=== PATIENT | male | born 1965 | race Caucasian/White ===

== ENCOUNTER 2017-07-02 01:14 | Emergency (ER) | payer OTHER ==
[~2017-07-02] VITALS: Ht 182.9 cm; Wt 105.3 kg
[2017-07-02 01:17] VITALS: Ht 182.9 cm; Wt 105.3 kg
[2017-07-02] MEDS ORDERED: METOCLOPRAMIDE HCL INJ 5 MG/ML 2 ML VIAL IV STA (01:26)
[2017-07-02] MEDS ORDERED: DIAZEPAM INJ 5 MG/ML 2 ML CARP IV STA ×2 (01:26→02:35)
[2017-07-02] MEDS ORDERED: GLUCAGON IV STA (01:26)
[2017-07-02] MEDS ORDERED: SODIUM CHLORIDE 0.9% 1000ML 1,000 ML IV STA (01:26)
[2017-07-02] MEDS ORDERED: NITROGLYCERIN OINT 2% 1GM PACKET EXT STA (01:26)
[2017-07-02] MEDS ORDERED: GLUCAGON FOR INJ 1 MG VIAL IV STA (01:38)
[2017-07-02] MEDS ORDERED: NITROGLYCERIN OINT 2% 1GM PACKET ONE (01:41)
[2017-07-02] MEDS ORDERED: GLUCAGON FOR INJ 1 MG VIAL ONE (01:42)
--- NOTE | 2017-07-02 01:45 | EMERGENCY ROOM VISIT NOTE ---
History Report prepared by Maykel: Jamil García Under the Supervision of: Dr. Sergey Langford M.D. First contact with patient: 01:23 Chief Complaint: VOMITING Stated Complaint: VOMITING,HARD TO BREATHE Nursing Triage Summary: reports fishing all day, had dinner and a few drinks suddenly felt reflux, spasming, difficulty breathing. "it's like my esophagus is spasming, foaming white bubbly stuff coming up". Not improving. Pt does not recall choking on anythin. some relief after "yacking up' History of Present Illness The patient is a 51 year old male who presents to the Emergency Room with complaints of intermittent vomiting starting earlier tonight. The patient sates that he was eating steak, mushrooms, and onions, and he felt like the food " went down the wrong pipe". He states that this has happened to him before, though never this bad. He states that he is now spitting up bubbly foam, and he has done this four times. He additionally states that he is having some chest tightness and shortness of breath. He states that he has never had an endoscopy before. Source of History: patient Onset: earlier tonight Position: other (global) Quality: other (vomiting) Timing: intermittent Associated Symptoms: + SOB Note: Associated symptoms: Chest tightness Review of Systems See HPI for pertinent positives & negatives. A total of 10 systems reviewed and were otherwise negative. Past Medical & Surgical Medical Problems: (1) Food impaction of esophagus Social History Smoking Status: Light Tobacco Smoker Marital Status: Housing Status: lives with family Occupation Status: employed Current/Historical Medications No Active Prescriptions or Reported Meds Allergies Coded Allergies: No Known Allergies (Unverified , 07/02/17) Physical Exam Vital Signs Date Time Temp Pulse Resp B/P (MAP) Pulse Ox O2 Delivery O2 Flow Rate FiO2 07/02/17 07:50 36.6 73 20 130/78 (95) 96 Room Air 07/02/17 07:40 36.6 80 18 124/78 (93) 95 Room Air 07/02/17 07:33 35.9 83 22 120/79 95 Room Air 07/02/17 06:36 87 18 123/75 95 Room Air 07/02/17 04:13 87 16 120/72 94 Room Air 07/02/17 01:17 36.3 100 18 159/99 100 Room Air Physical Exam GENERAL: Patient is a healthy-appearing well-nourished Male, appears uncomfortable, actively spitting saliva HEAD: Normocephalic atraumatic EYES: Ocular movements intact pupils equal and react to light OROPHARYNX mucous membranes are moist no exudates present no erythema or edema present NECK: Supple no nuchal rigidity CHEST: Good equal expansion LUNGS: Clear and equal to auscultation CARDIAC: Normal S1 and S2 ABDOMEN: Soft nontender no guarding BACK: No CVA tenderness EXTREMITIES: No pain upon palpation normal muscle strength in all groups no clubbing cyanosis or edema NEURO: Patient is following commands is answering questions appropriately. Alert and oriented x3 Cranial Nerves 2-12 grossly intact Medical Decision & Procedures ER Provider Diagnostic Interpretation: 1 view chest was interpreted by me shows no evidence of pneumonia congestion pneumothorax or free air. Medications Administered Medications (Trade) Dose Ordered Sig/Dorota Route Start Time Stop Time Status Last Admin Dose Admin Sodium Chloride 1,000 ml @ 999 mls/hr Q1H1M STAT IV 07/02/17 01:26 07/02/17 02:26 DC 07/02/17 01:48 999 MLS/HR Metoclopramide HCl (Reglan Inj) 10 mg NOW STAT IV 07/02/17 01:26 07/02/17 01:28 DC 07/02/17 01:46 10 MG Diazepam (Valium Inj) 5 mg NOW STAT IV 07/02/17 01:26 07/02/17 01:28 DC 07/02/17 01:47 5 MG Nitroglycerin (Nitroglycerin 2% Oint) 1 inch NOW STAT EXT 07/02/17 01:26 07/02/17 01:28 DC 07/02/17 01:47 1 INCH Glucagon (Glucagon Inj) 1 mg NOW STAT IV 07/02/17 01:38 07/02/17 01:39 DC 07/02/17 01:38 1 MG Miscellaneous Medication (Gi Cocktail) 24 ml NOW STAT PO 07/02/17 02:18 07/02/17 02:19 DC 07/02/17 02:18 24 ML Al Hydroxide/Mg Hydroxide (Maalox Susp) 30 ml STK-MED ONCE .ROUTE 07/02/17 02:24 07/02/17 02:25 DC 8/13/17 02:25 30 ML Lidocaine HCl (Viscous Lidocaine 2% Soln) 20 ml STK-MED ONCE .ROUTE 07/02/17 02:24 07/02/17 02:25 DC 07/02/17 02:25 20 ML Diazepam (Valium Inj) 5 mg NOW STAT IV 07/02/17 02:35 07/02/17 02:36 DC 07/02/17 02:41 5 MG Promethazine HCl 25 mg/Sodium Chloride 51 ml @ 204 mls/hr NOW STAT IV 07/02/17 02:35 07/02/17 02:49 DC 07/02/17 02:46 204 MLS/HR ED Course 0123: Past medical records reviewed. The patient was evaluated in room A12. A complete history and physical examination was performed. 0126: Nitroglycerine 2% Oint 1 inch EXT, Valium Inj 5mg IV, Reglan Inj 10mg IV, Sodium Chloride 1000 ml @ 999 mls/hr IV 0138: Glucagon 1mg IV 0156: I reevaluated the patient, and he was feeling better 0218: GI Cocktail 24ml PO 0224: Viscous Lidocaine 2% Soln 20ml PO, Maalox Susp 30ml PO 0233: I discussed the patient's case with Dr. Arreguin, Gastroenterology, and she states that she will evaluate the patient at 0600. 0235: Promethazine HCl 25mg/ Sodium Chloride 51 ml @ 204 mls/hr IV, Valium Inj 5mg IV Medical Decision This is a 51-year-old male presents emergency department he is actively vomiting mushrooms as well as a is from his stay as well as his own saliva ever since eating several hours prior. Patient relates that he has had a history of achalasia however has never had never had an endoscopy performed. An IV was established, patient given normal saline bolus, Valium, glucagon, Reglan, Nitropaste. Repeat exam revealed improvement the patient's symptoms and I was going to trial patient with water however after trying a GI cocktail the patient 's symptoms returned again. At this point I contacted gastroenterology who will be in to scope the patient. He was given a further dose of Valium to help him relax. Patient taken to endoscopy suite in the morning. Medication Reconcilliation Current Medication List: was personally reviewed by me Blood Pressure Screening Patient's blood pressure: Elevated blood pressure Blood pressure disposition: Referred to PCP Consults Time Called: 023 Consulting Physician: Dr. Arreguin, Gastroenterology Returned Call: [phone] I discussed the patient's case with Dr. Arreguin, Gastroenterology, and she states that she will evaluate the patient at 0600. Impression Primary Impression: Food impaction of esophagus Scribe Attestation The scribe's documentation has been prepared under my direction and personally reviewed by me in its entirety. I confirm that the note above accurately reflects all work, treatment, procedures, and medical decision making performed by me. Departure Information Dispostion Still a Patient Prescriptions No Active Prescriptions or Reported Meds Referrals No Doctor, Assigned (PCP) Patient Instructions My [facility] Problem Qualifiers Primary Impression: Food impaction of esophagus Encounter type: initial encounter Qualified Codes: T18.128A - Food in esophagus causing other injury, initial encounter
[2017-07-02] MEDS ORDERED: GI COCKTAIL PO STA (02:18)
[2017-07-02] MEDS ORDERED: ALUMINUM/MAGNESIUM SUSP 30 ML UDC ONE (02:24)
[2017-07-02] MEDS ORDERED: LIDOCAINE HCL 2% VISC SOLN 20 ML UDC ONE (02:24)
[2017-07-02] MEDS ORDERED: PROMETHAZINE HCL INJ 25 MG in SODIUM CHLORIDE 0.9% 50ML 50 ML IV STA (02:35)
[2017-07-02 06:36] VITALS: O2SAT 95
[2017-07-02] MEDS ORDERED: MIDAZOLAM HCL 1 MG/ML 2ML VIAL ONE (06:56)
[2017-07-02] MEDS ORDERED: FENTANYL CITRATE INJ 50 MCG/1 ML 2 ML VIAL ONE (06:56)
[2017-07-02] MEDS ORDERED: PROPOFOL IV EMULSION 10 MG/ML 20 ML VIAL IV ONE (06:56)
[2017-07-02] MEDS ORDERED: LIDOCAINE 2% 20 MG/ML 5ML SYR ONE (06:56)
[2017-07-02] MEDS ORDERED: SUCCINYLCHOLINE CHLORIDE 20 MG/ML 10 ML VIAL IV ONE (06:56)
--- NOTE | 2017-07-02 07:03 | Endo History and Physical ---
History & Physical Date of Service: Jul 02, 2017. Chief Complaint: food bolus Referring Physician: ER History of Present Illness Swallowd food last evening. Unable to swallow since that time Past Medical History HTN Social History Smoking Status: Light Tobacco Smoker Allergies Coded Allergies: No Known Allergies (Unverified , 07/02/17) Current Medications Reported Home Medications Medications Dose Route/Sig Max Daily Dose Days Date Category No Active Prescriptions or Reported Medications Rx Vital Signs Weight (Kilograms): 105.300 Height (Feet): 6 Height (Inches): 0 Date Time Temp Pulse Resp B/P (MAP) Pulse Ox O2 Delivery O2 Flow Rate FiO2 07/02/17 06:36 87 18 123/75 95 Room Air 07/02/17 04:13 87 16 120/72 94 Room Air 07/02/17 01:17 36.3 100 18 159/99 100 Room Air Physical Exam General Appearance: WD/WN Assessment and Plan EGD for food bolus today
--- NOTE | 2017-07-02 07:22 | GI REPORT ---
Procedure Date: 07/02/2017 6:41 AM Procedure: Upper GI endoscopy Indications: Dysphagia, - suspected esophageal foreign body Medicines: Propofol per Anesthesia, Monitored Anesthesia Care Complications: No immediate complications. Estimated blood loss: None. Estimated Blood Loss: Estimated blood loss: none. Procedure: Pre-Anesthesia Assessment: - Prior to the procedure, a History and Physical was performed, and patient medications, allergies and sensitivities were reviewed. The patient's tolerance of previous anesthesia was reviewed. - The risks and benefits of the procedure and the sedation options and risks were discussed with the patient. All questions were answered and informed consent was obtained. - Patient identification and proposed procedure were verified prior to the procedure by the physician and the nurse. The procedure was verified in the pre-procedure area in the procedure room. - Mental Status Examination: alert and oriented. Airway Examination: normal oropharyngeal airway and neck mobility. Respiratory Examination: clear to auscultation. CV Examination: normal. Abdominal Examination: bowel sounds present, abdomen soft and non-tender, no masses or organomegaly noted. - ASA Grade Assessment: II - A patient with mild systemic disease. After obtaining informed consent, the endoscope was passed under direct vision. Throughout the procedure, the patient's blood pressure, pulse, and oxygen saturations were monitored continuously. The scope was introduced through the mouth, and advanced to the second part of duodenum. The upper GI endoscopy was accomplished without difficulty. The patient tolerated the procedure well. Findings: Severe esophagitis with no bleeding was found in the lower third of the esophagus. The stomach was normal. The examined duodenum was normal. Impression: - Severe erosive esophagitis. Scope advanced with ease. No food in the esophagus. Dilation not performed secondary to significant inflammation. - Normal stomach. - Normal examined duodenum. - No specimens collected. Recommendation: - Follow an antireflux regimen. - Use Prilosec (omeprazole) 20 mg PO BID. - Use sucralfate suspension 1 gram PO QID for 1 week. - Repeat the upper endoscopy in 2 weeks to check healing. - Discharge patient to home. Nicolette Arreguin D.O. Nicolette Arreguin DO 07/02/2017 7:22:23 AM This report has been signed electronically. Note Initiated On: 07/02/2017 6:41 AM I attest to the content of the Intraoperative Record and orders documented therein, exceptions below
[2017-07-02 07:33] VITALS: BP 120/79; PULSE 83; TEMP 35.9; O2SAT 95
--- NOTE | 2017-07-02 07:35 | Discharge Instructions ---
Endoscopy Patient Instructions Date / Procedure(s) Performed Jul 02, 2017. EGD Allergy Information Coded Allergies: No Known Allergies (Unverified , 07/02/17) Discharge Date / Findings Jul 02, 2017. severe esophagitis; no remaining food in the esophagus Medication Instructions Restart Stopped Medication(s): OK to take all home medications Start taking omeprazole 20 mg twice a day and continue for 6 weeks then decrease to once a day Take sucralfate 4 times a day for 1 week then stop. this will coat the esophagus and soothe the inflammation. Provider Instructions Activity Restrictions - No exercising or heavy lifting for 24 hours. - Do not drink alcohol the day of the procedure. - Do not drive a car or operate machinery until the day after the procedure. - Do not make any important decisions or sign important papers in 24 hours after the procedure. Following Day: - Return to full activity which may include returning to work/school. Diet Start your diet with liquids and light foods (jello, soup, juice, toast). Then eat your usual diet if not nauseated. Avoid dry meats and breads for the next several days. Treatment For Common After Affects For mild abdominal pain, bloating, or excessive gas: - Rest - Eat lightly - Lie on right side Follow-Up Information You will need a follow-up endoscopy in 2 weeks to be sure the esophagitis is healing and potentially dilate the esophagus if needed. Please contact my office at [phone] Monday. Anesthesia Information What You Should Know You have had a procedure that required some medicine to reduce anxiety and discomfort. This treatment is called moderate sedation. After receiving the treatment, you may be sleepy, but you will be able to breathe on your own. The effects of the treatment may last for several hours. Follow these instructions along with Activity/Diet recommendations noted above: * Do NOT do anything where dizziness or clumsiness would be dangerous. * Rest quietly at home today, then you can be up and about tomorrow. * Have a responsible person stay with you the rest of today. * You may have had an I.V. today. If so, you may take the dressing off later today. Recommendations Call your doctor if: * Trouble breathing * Continuous vomiting for more than 24 hours * Temperature above 101 degrees * Severe abdominal pain or bloating * Pain not relieved by pain medicine ordered * There is increased drainage or redness from any incision * A large amount of rectal bleeding greater than 2-3 tablespoons. (If you had a polyp/s removed or have hemorrhoids, a small amount of blood - from the rectum is to be expected.) * You have any unanswered questions or concerns. IN THE EVENT OF A SERIOUS EMERGENCY, GO TO THE NEAREST EMERGENCY ROOM Your discharge instructions were prepared by provider Nicolette Arreguin. Patient Instructions Signature Page Alvaro Joyce Patient (or Guardian) Signature/Date: I have read and understand the instructions given to me by my caregivers. Caregiver/RN/Doctor Signature/Date: The above-named patient and/or guardian has received patient instructions on this date. + Original Patient Signature Page (only) stays with chart. Please make copy for patient.
--- NOTE | 2017-07-02 07:44 | Anesthesiology Progress Note ---
Anesthesia Post Op Note Date & Time Jul 02, 2017 at 07:44 Vital Signs Pain Intensity: 0 Vital Signs Past 12 Hours Date Time Temp Pulse Resp B/P (MAP) Pulse Ox O2 Delivery O2 Flow Rate FiO2 07/02/17 07:33 35.9 83 22 120/79 95 Room Air 07/02/17 06:36 87 18 123/75 95 Room Air 07/02/17 04:13 87 16 120/72 94 Room Air 07/02/17 01:17 36.3 100 18 159/99 100 Room Air Notes Mental Status: alert / awake / arousable, participated in evaluation Pt Amnestic to Procedure: Yes Nausea / Vomiting: adequately controlled Pain: adequately controlled Airway Patency, RR, SpO2: stable & adequate BP & HR: stable & adequate Hydration State: stable & adequate Anesthetic Complications: no major complications apparent
[2017-07-02 07:50] VITALS: BP 130/78; PULSE 73; TEMP 36.6; O2SAT 96
--- NOTE | 2017-07-02 08:00 | DIAGNOSTIC IMAGING REPORT ---
CHEST ONE VIEW PORTABLE HISTORY: Nausea. Vomiting. Pt c/o food bolus COMPARISON: None. FINDINGS: The lungs are clear. Cardiac silhouette is normal in size. No pleural effusions. No pneumothorax. IMPRESSION: No acute process. Electronically signed by: Eugene Brambila M.D. 07/02/2017 7:59 AM Dictated Date/Time: 07/02/2017 7:58 AM
== END 2017-07-02 06:37 | disposition home or self-care (01) ==
LOC: C.EDB 01:16 → C.ED 06:37 → C.EDA 06:37
DX: K20.9 Esophagitis, unspecified (principal); R11.10 Vomiting, unspecified; I10 Essential (primary) hypertension; F17.200 Nicotine dependence, unspecified, uncomplicated

== ENCOUNTER → 2017-11-28 | Day surgery (SDC) | payer OTHER ==
[2017-11-22 10:52] VITALS: Ht 182.9 cm; Wt 104.5 kg
[~2017-11-28] VITALS: Ht 182.9 cm; Wt 104.5 kg
[~2017-11-28] MED LIST: ATROPINE SULFATE 0.1 MG/ML 5ML SYR IV PRN; BUPIVACAINE 0.5 % 5 MG/1 ML PF 10ML VIAL ONE; CEFAZOLIN 1000MG IV PUSH 5 ML IV SCH; CEFAZOLIN 2000MG IV PUSH 10 ML IV SCH; CEFAZOLIN SOD 2000MG/10 ML IV PUSH IV ONE; DEXAMETHASONE SOD INJ 4 MG/ML VIAL ONE; EpINEphrine INJ 1MG/ML AMP 1 MG/ML AMP ONE; FENTANYL CITRATE INJ 50 MCG/1 ML 2 ML VIAL IV PRN; FENTANYL CITRATE INJ 50 MCG/1 ML 2 ML VIAL ONE; KETOROLAC TROMETHAMINE 30 MG/ML VIAL IV. PRN; KETOROLAC TROMETHAMINE 30 MG/ML VIAL ONE; LABETALOL HCL IV 5 MG/ML 20ML IV PRN; LACTATED RINGER'S 1000ML 1,000 ML IV SCH; LIDOCAINE HCL 2% 2 ML VIAL (20MG/ML) ONE; MIDAZOLAM HCL 1 MG/ML 2ML VIAL ONE; NAPR1TAB22 PO; OMEP20CA9 PO; ONDANSETRON INJ 2 MG/ML 2 ML VIAL IV PRN; ONDANSETRON INJ 2 MG/ML 2 ML VIAL ONE; OXYCODONE/ACETAMINOPHEN 5-325 TAB PO PRN; PROPOFOL IV EMULSION 10 MG/ML 20 ML VIAL IV ONE; ROPIVACAINE 0.5% 5 MG/ML 30 ML VIAL ONE; SODIUM CHLORIDE 0.9% 1000ML 1,000 ML IV SCH; TRAM-10 PO
--- NOTE | 2017-11-28 08:14 | History & Physical Bridge - SC ---
H&P Re-Evaluation Bridge Note: I have examined the patient, reviewed the History & Physical and in the interval since the performance of the History & Physical I have noted the following changes of clinical significance: No changes noted
--- NOTE | 2017-11-28 09:25 | [facility] Post Operative Brief Note ---
Immediate Operative Summary Operative Date Nov 28, 2017. Pre-Operative Diagnosis Left Knee Medial Meniscus Tear Post-Operative Diagnosis same as pre op Procedure(s) Performed Left Knee Arthroscopy, Partial Medial Meniscectomy, Removal of Large Plica Surgeon Dr Hinton Grading Machine Feeder Surgeon(s) TUNDE Boudreaux Estimated Blood Loss 0 ml Findings ABOVE Specimens none Anesthesia LMA Complication(s) None Disposition Recovery Room / PACU
--- NOTE | 2017-11-28 09:35 | Discharge Instructions-SurgCtr ---
Discharge Instructions Date of Service Nov 28, 2017. Visit Reason for Visit: Left Knee Medial Meniscus Tear Discharge Discharge Diagnosis / Problem: SAME ABOVE Discharge Goals Goal(s): Decrease discomfort, Improve function Activity Recommendations Activity Limitations: as noted below Lifting Limitations: gradually increase as tolerated Exercise/Sports Limitations: until after follow-up appointment Shower/Bathe: tomorrow Weightbearing Status: Left weightbearing (as tolerated) Anesthesia . Post Anesthesia Instructions: If you have had General Anesthesia or IV Sedation: * Do not drive today. * Resume driving when surgeon permits. * Do not make important decisions or sign legal documents today. * Call surgeon for: 1. Temperature elevations greater than 101 degrees F. 2. Uncontrollable pain. 3. Excessive bleeding. 4. Persistent nausea and vomiting. 5. Medication intolerance (nausea, vomiting or rash). * For nausea and vomiting use only clear liquids such as: tea, soda, bouillon until nausea subsides, then gradually increase diet as tolerated. * If you have any concerns or questions, call your surgeon's office. If physician is unavailable and it is an emergency, call 911 or go to the nearest emergency room. . Instructions / Follow-Up Instructions / Follow-Up MEDICATIONS: * Resume previous medications unless instructed otherwise by your surgeon. * Always take pain medication on a full stomach or with food to avoid upset stomach. * Do not drink alcohol or drive while taking narcotics. * Ibuprofen or Tylenol may be taken if narcotic not needed. SPECIAL CARE INSTRUCTIONS: __ None _X_ Keep extremity elevated and iced x 48 hours; apply ice 20-30 minutes 8-10 times/day. May remove at night. __ Crutches __ May discard when able __ Brace/Post-op shoe __ 24 hrs/day __ Remove at night _X_ Dressing __ Maintain until seen in office, may shower with plastic over site _X_ Remove dressings in 24-48 hours and then may shower _X_ Cover incisions with band-aids after showering __ Do not remove steri-strips Call physician if chills or temperature rises above 102 degrees or pain unrelieved by prescribed pain medications. Office [phone] Diet Recommendations Home Diet: resume previous diet Procedures Procedures Performed: Left Knee Arthroscopy, Partial Medial Meniscectomy, Removal of Large Plica Band Pending Studies Studies pending at discharge: no Medical Emergencies . Who to Call and When: Medical Emergencies: If at any time you feel your situation is an emergency, please call 911 immediately. . Non-Emergent Contact Non-Emergency issues call your: Primary Care Provider . . "Provider Documentation" section prepared by Shon Zarate. .
--- NOTE | 2017-11-28 09:41 | OPERATIVE REPORT ---
DATE OF OPERATION: 11/28/2017 PREOPERATIVE DIAGNOSIS: Medial meniscus tear left knee. POSTOPERATIVE DIAGNOSES: 1. Complex tear posterior horn of the medial meniscus. 2. Left knee effusion. 3. Large plica band patellofemoral joint. PROCEDURES: 1. Left knee arthroscopy. 2. Partial medial meniscectomy. 3. Removal of plica band and synovectomy, left knee. SURGEON: Josh Hinton MD. COIL WINDER: Shon Zarate PA-C. ANESTHESIOLOGIST: Nate Mcintyre MD. ANESTHESIA: LMA. DRAINS: None. COMPLICATIONS: None. CONDITION: The patient tolerated the procedure well and returned to the recovery room in apparent satisfactory condition. INDICATIONS FOR SURGERY: Alvaro is a 52-year-old male who has had increasing pain and discomfort of the left knee after he injured himself. His physical exam, MRI and history are consistent with a medial meniscus tear with knee effusion. Elected to go ahead and proceed with surgery. Procedure, expected outcomes and side effects were all explained in detail. DESCRIPTION OF PROCEDURE: The patient was taken to the OR at which time he was placed supine on the operating table and put to sleep by the anesthesia department. Examination of left knee was performed. Ligamentous rosen the knee was stable. We went ahead and prepped and draped in usual sterile fashion. We began arthroscopic examination in the anteromedial and anterolateral portals. Immediately, we found a large amount of fluid which was drained from the knee. The suprapatellar joint had a large plica band with a lot of synovitis present there. We gave our attention to the medial compartment. First, we found a posterior horn complex tear of the medial meniscus. We came in with upbiting scissors and full range resector and trimmed it back to a stable rim. The articular surfaces looked good. The ACL was fine. Lateral compartment was fine. We found a plica band which was removed and did a synovectomy in the suprapatellar joint. The knee then was copiously irrigated. The patellofemoral joint articular surfaces were in good shape also. The knee then was copiously irrigated. All cannulas were removed. Portals closed with 4-0 nylon sutures. 30 mL of ropivacaine, 10 mg of Toradol, and 1 mL of epinephrine was placed in the knee joint. Placed a sterile dressing of Xeroform, 4 x 4, ABD, Sof-Rol, and Rito bandage and returned back to recovery room in apparent satisfactory condition. SURGICAL FINDINGS: Include: 1. Complex tear of the posterior horn of the medial meniscus. 2. Left knee effusion. 3. Large plica band in the patellofemoral joint. I attest to the content of the Intraoperative Record and any orders documented therein. Any exception s are noted below.
[2017-11-28 10:47] VITALS: BP 126/81; PULSE 69; O2SAT 96
--- NOTE | 2017-11-28 10:49 | Anesthesia Progress Nt - [facility] ---
Anesthesia Post Op Note Date & Time Nov 28, 2017 at 10:49 Vital Signs Pain Intensity: 2 Vital Signs Past 12 Hours Date Time Temp Pulse Resp B/P (MAP) Pulse Ox O2 Delivery O2 Flow Rate FiO2 11/28/17 10:18 36.5 58 16 123/76 (92) 99 Room Air 11/28/17 10:08 63 19 11/28/17 10:08 64 19 99 11/28/17 10:06 126/88 11/28/17 10:03 36.4 60 16 126/88 99 Room Air 11/28/17 10:03 68 14 11/28/17 10:03 65 14 99 11/28/17 10:01 138/87 11/28/17 09:58 63 13 11/28/17 09:58 64 13 100 11/28/17 09:56 131/87 11/28/17 09:53 69 14 100 11/28/17 09:53 70 14 11/28/17 09:52 74 24 100 11/28/17 09:52 74 24 11/28/17 09:51 118/83 11/28/17 09:47 62 10 11/28/17 09:47 62 10 100 11/28/17 09:46 111/73 11/28/17 09:45 59 15 100 11/28/17 09:45 62 15 11/28/17 09:44 64 10 11/28/17 09:44 64 10 100 11/28/17 09:41 120/71 11/28/17 09:39 61 16 99 11/28/17 09:39 63 16 11/28/17 09:36 114/74 11/28/17 09:35 113/72 11/28/17 09:34 36.3 66 12 113/72 100 Mask 8 11/28/17 07:57 36.9 89 22 137/87 (104) 99 Room Air Notes Mental Status: alert / awake / arousable, participated in evaluation Pt Amnestic to Procedure: Yes Nausea / Vomiting: adequately controlled Pain: adequately controlled Airway Patency, RR, SpO2: stable & adequate BP & HR: stable & adequate Hydration State: stable & adequate Anesthetic Complications: no major complications apparent
== END | disposition home or self-care (01) ==
LOC: X.SURG 07:50
PROVIDERS: ATTEND Orthopaedic Surgery
DX: M23.222 Derangement of posterior horn of medial meniscus due to old tear or injury, left knee (principal); M25.462 Effusion, left knee; K21.0 Gastro-esophageal reflux disease with esophagitis